=== PATIENT | female | born 1985 | race Caucasian/White ===

== ENCOUNTER 2016-06-06 09:12 | Emergency (ER) | payer OTHER ==
[2016-06-06 09:19] VITALS: O2SAT 94
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
[2016-06-06] MEDS ORDERED: IBUPROFEN 600 MG TAB PO ONE (10:11)
[2016-06-06 11:15] VITALS: BP 128/78; PULSE 70; RESP 16; TEMP 97.9
== END 2016-06-06 11:14 | disposition home or self-care (01) ==
DX: S39.012A Strain of muscle, fascia and tendon of lower back, initial encounter (principal); V89.2XXA Person injured in unspecified motor-vehicle accident, traffic, initial encounter

== ENCOUNTER → 2016-12-09 | Outpatient (CLI) | payer OTHER | LOC: BMCIMAGING 12:24 | PROVIDERS: ATTEND Family Medicine | DX: S99.912A Unspecified injury of left ankle, initial encounter (principal); W10.8XXA Fall (on) (from) other stairs and steps, initial encounter; Y99.0 Civilian activity done for income or pay ==

== ENCOUNTER → 2017-03-27 | Outpatient (CLI) | payer OTHER | LOC: FIMAGING 17:10 | PROVIDERS: ATTEND Physician Assistant | DX: M25.511 Pain in right shoulder (principal); M79.601 Pain in right arm; R07.81 Pleurodynia ==

== ENCOUNTER 2018-05-12 16:04 | Emergency (ER) | payer BC, OTHER ==
--- NOTE | 2018-05-12 17:13 | EDPHY ---
H & P Stated Complaint: 2 days RLQ pain, miscarriage 2 weeks ago. Time Seen by Provider: 05/12/18 16:44 HPI/ROS: CHIEF COMPLAINT: Right lower quadrant pain HISTORY OF PRESENT ILLNESS: 33-year-old female presents with right lower quadrant pain. Onset of sharp and stabbing right lower quadrant pain 5 hr ago. The pain is moderate and radiates to the groin. Associated with a 2 day history of constipation. No fever, nausea, vomiting or diarrhea. 2 weeks ago she had a heavy period and thought that she may have had a miscarriage. No current vaginal bleeding and no urinary symptoms. REVIEW OF SYSTEMS: complete 10 point ROS reviewed and is negative except for the noted elements in the HPI - Personal History Current Tetanus Diphtheria and Acellular Pertussis (TDAP): Yes Tetanus Vaccine Date: < 10 years - Medical/Surgical History Hx Asthma: No Hx Chronic Respiratory Disease: No Hx Diabetes: No Hx Cardiac Disease: No Hx Renal Disease: No Hx Cirrhosis: No Hx Alcoholism: No Hx HIV/AIDS: No Hx Splenectomy or Spleen Trauma: No Other PMH: hx PCOS, kidney stones - Social History Smoking Status: Never smoked Alcohol Use: Sober Drug Use: None - Physical Exam Exam: General Appearance: Alert, pleasant Eyes: Pupils equal and round, no conjunctival pallor ENT, Mouth: Mucous membranes moist Neck: Normal inspection Respiratory: Lungs are clear to auscultation Cardiovascular: Regular rate and rhythm Gastrointestinal: Abdomen is soft, right lower quadrant tenderness, no peritoneal signs Neurological: A&O, nonfocal, normal gait Skin: Warm and dry, no rash Extremities: Normal inspection Psychiatric: Mood and affect normal Constitutional: Initial Vital Signs Temperature (C) 36.3 C 05/12/18 16:27 Heart Rate 67 05/12/18 16:27 Respiratory Rate 16 05/12/18 16:27 Blood Pressure 138/87 H 05/12/18 16:27 O2 Sat (%) 99 05/12/18 16:27 O2 Delivery Mode Room Air Allergies/Adverse Reactions: No Known Allergies Allergy (Unverified 04/26/15 09:45) Home Medications: Medication Instructions Recorded Citalopram 05/12/18 Medical Decision Making - Diagnostics Imaging Results: Imaging Impressions Pelvic/Renal Ultrasound 05/12/18 16:53 Impression: There is a right adnexal solid mass with some intrinsic vascularity , of uncertain significance measuring 3 cm in diameter, not seen on previous imaging studies in 2016. The adjacent right ovary appears normal, with no evidence of torsion. The left ovary is also normal. LIMITED ABDOMINAL (APPENDICEAL) ULTRASOUND Technique: The right lower quadrant was evaluated with a high-resolution linear transducer, utilizing graded compression and color Doppler. Findings: The cecum is identified, and is air-filled, and the patient has some localized point tenderness in this location. There is trace pericecal free fluid also observed (images 6 and 13). However, the appendix is not identified. There is no rebound, inflamed mesenteric fat, or right lower quadrant mesenteric adenitis. Impression: Nondiagnostic assessment of the appendix. If there is further clinical concern regarding the patient's right lower quadrant pain, contrast-enhanced CT imaging could be considered. Abdomen Ultrasound 05/12/18 17:02 Impression: There is a right adnexal solid mass with some intrinsic vascularity , of uncertain significance measuring 3 cm in diameter, not seen on previous imaging studies in 2016. The adjacent right ovary appears normal, with no evidence of torsion. The left ovary is also normal. LIMITED ABDOMINAL (APPENDICEAL) ULTRASOUND Technique: The right lower quadrant was evaluated with a high-resolution linear transducer, utilizing graded compression and color Doppler. Findings: The cecum is identified, and is air-filled, and the patient has some localized point tenderness in this location. There is trace pericecal free fluid also observed (images 6 and 13). However, the appendix is not identified. There is no rebound, inflamed mesenteric fat, or right lower quadrant mesenteric adenitis. Impression: Nondiagnostic assessment of the appendix. If there is further clinical concern regarding the patient's right lower quadrant pain, contrast-enhanced CT imaging could be considered. Abdomen CT 05/12/18 18:51 Impression: 1. Punctate calcification in the expected location of the distal right ureter, which could be related to ureteral stone or artifact, without obstructive uropathy. 2. No discrete right adnexal mass identified. CT appearance of the right pelvis is grossly stable since 2016, allowing for variation between unenhanced- and contrast-enhanced technique. Consider follow-up ultrasound in 6 weeks. 3. Additional findings as above. Findings discussed with Feli Dee M.D., on May 12, 2018 at 1936. E:amm ED Course/Re-evaluation: This patient presents with sharp and stabbing right lower quadrant pain. Pelvic ultrasound obtained and reveals no evidence of ovarian cyst. The appendix is not clearly visualized. Discussed with the patient, continues to have persistent right lower quadrant sharp and stabbing pain. Toradol [address] scan of the abdomen pelvis obtained and reveals a possible tiny right distal ureteral calculus. This would certainly explain the patient's symptoms and is most likely, given the patient's history of kidney stones. Results discussed with the patient, including the need to follow up with OBGYN for pelvic ultrasound in 6 weeks. The patient will take ibuprofen every 6 hr for pain control. A prepack of hydrocodone was given for severe pain. Differential Diagnosis: Differential diagnosis includes though it is not limited to appendicitis, cholecystitis, diverticulitis, pyelonephritis, bowel perforation, small bowel obstruction. - Data Points Laboratory Results: Laboratory Results 05/12/18 16:47 05/12/18 16:47 05/12/18 05/12/18 05/12/18 17:45 16:47 16:47 WBC RBC Hgb Hct MCV MCH MCHC RDW Plt Count MPV Neut % (Auto) Lymph % (Auto) Kimball % (Auto) Eos % (Auto) Baso % (Auto) Nucleat RBC Rel Count Absolute Neuts (auto) Absolute Lymphs (auto) Absolute Monos (auto) Absolute Eos (auto) Absolute Basos (auto) Absolute Nucleated RBC Immature Gran % Immature Gran # Sodium 138 mEq/L mEq/L (135-145) Potassium 4.1 mEq/L mEq/L (3.5-5.2) Chloride 103 mEq/L mEq/L (97-110) Carbon Dioxide 27 mEq/l mEq/l (22-31) Anion Gap 8 mEq/L mEq/L (6-14) BUN 13 mg/dL mg/dL (7-23) Creatinine 0.8 mg/dL mg/dL (0.6-1.0) Estimated GFR > 60 Glucose 87 mg/dL mg/dL (70-100) Calcium 10.1 mg/dL mg/dL (8.5-10.4) Beta HCG, Qual NEGATIVE Urine Color YELLOW Urine Appearance CLEAR Urine pH 6.0 (5.0-7.5) Ur Specific [place] 1.021 (1.002-1.030) Urine Protein NEGATIVE (NEGATIVE) Urine Ketones TRACE H (NEGATIVE) Urine Blood NEGATIVE (NEGATIVE) Urine Nitrate NEGATIVE (NEGATIVE) Urine Bilirubin NEGATIVE (NEGATIVE) Urine Urobilinogen NEGATIVE EU EU (0.2-1.0) Ur Leukocyte Esterase NEGATIVE (NEGATIVE) Urine Glucose NEGATIVE (NEGATIVE) 05/12/18 16:47 WBC 8.62 10^3/uL 10^3/uL (3.80-9.50) RBC 4.84 10^6/uL 10^6/uL (4.18-5.33) Hgb 15.1 g/dL g/dL (12.6-16.3) Hct 44.7 % % (38.0-47.0) MCV 92.4 fL fL (81.5-99.8) MCH 31.2 pg pg (27.9-34.1) MCHC 33.8 g/dL g/dL (32.4-36.7) RDW 13.2 % % (11.5-15.2) Plt Count 229 10^3/uL 10^3/uL (150-400) MPV 11.5 fL fL (8.7-11.7) Neut % (Auto) 50.3 % % (39.3-74.2) Lymph % (Auto) 38.7 % % (15.0-45.0) Kimball % (Auto) 9.2 % % (4.5-13.0) Eos % (Auto) 0.8 % % (0.6-7.6) Baso % (Auto) 0.7 % % (0.3-1.7) Nucleat RBC Rel Count 0.0 % % (0.0-0.2) Absolute Neuts (auto) 4.33 10^3/uL 10^3/uL (1.70-6.50) Absolute Lymphs (auto) 3.34 10^3/uL H 10^3/uL (1.00-3.00) Absolute Monos (auto) 0.79 10^3/uL 10^3/uL (0.30-0.80) Absolute Eos (auto) 0.07 10^3/uL 10^3/uL (0.03-0.40) Absolute Basos (auto) 0.06 10^3/uL 10^3/uL (0.02-0.10) Absolute Nucleated RBC 0.00 10^3/uL 10^3/uL (0-0.01) Immature Gran % 0.3 % % (0.0-1.1) Immature Gran # 0.03 10^3/uL 10^3/uL (0.00-0.10) Sodium Potassium Chloride Carbon Dioxide Anion Gap BUN Creatinine Estimated GFR Glucose Calcium Beta HCG, Qual Urine Color Urine Appearance Urine pH Ur Specific Hern[place] Urine Protein Urine Ketones Urine Blood Urine Nitrate Urine Bilirubin Urine Urobilinogen Ur Leukocyte Esterase Urine Glucose Medications Given: Discontinued Medications Hydrocodone Bitart/Acetaminophen ([place] 5/325mg Prepack#6) 1 btl TAKEHOME EDNOW ONE Stop: 05/12/18 20:11 Last Admin: 05/12/18 20:21 Dose: 1 btl Ketorolac Tromethamine (Toradol) 30 mg IVP EDNOW ONE Stop: 05/12/18 18:52 Last Admin: 05/12/18 19:20 Dose: 30 mg Magnesium Citrate (Magnesium Citrate) 300 ml PO EDNOW ONE Stop: 05/12/18 20:20 Last Admin: 05/12/18 20:20 Dose: 300 ml Point of Care Test Results: Urine Collection Date 05/12/18 Collection Time 17:54 HCG Results Negative Departure - Departure Disposition: Home, Routine, Self-Care Clinical Impression: RLQ abdominal pain, Renal colic on right side Condition: Good Instructions: Hydrocodone/Acetaminophen (By mouth), Acute Abdominal Pain (ED), Ureteral Stones (ED) Additional Instructions: You may have a tiny kidney stone on the right side. If so, this is the cause of your pain and the pain will resolve once you pass the kidney stone. You do not have appendicitis or an ovarian cyst. Ibuprofen 600 mg 3 times daily while the pain persists. Take hydrocodone 1 tablet every 4 hr as needed for severe pain. The radiologist suggests a repeat ultrasound in 6 weeks. Follow-up with locate technician to schedule. Referrals: Mauricio Sevilla MD [Primary Care Provider] - As per Instructions Kassy Baer MD [Medical Doctor] - As per Instructions
[2018-05-12 17:21] LABS: PLATELET COUNT 229 10^3/uL (150-400)
[2018-05-12] MEDS ORDERED: KETOROLAC 30 MG/1 ML SDV IVP ONE (18:51)
[2018-05-12] MEDS ORDERED: IOPAMIDOL (ISOVUE 370) 100 ML BTL IV ONE (18:59)
[2018-05-12 19:28] VITALS: BP 122/78
[2018-05-12] MEDS ORDERED: HYDROCOD/APAP 5/325 PREPACK#6 BTL TAKEHOME ONE (20:10)
[2018-05-12] MEDS ORDERED: MAGNESIUM CITRATE 300 ML BOTTLE ONE (20:18)
[2018-05-12] MEDS ORDERED: MAGNESIUM CITRATE 300 ML BOTTLE PO ONE (20:19)
== END 2018-05-12 20:26 | disposition home or self-care (01) ==
DX: R10.31 Right lower quadrant pain (principal); N23 Unspecified renal colic
CPT/HCPCS: 96374; J1885; Q9967

== ENCOUNTER 2018-08-15 14:55 | Emergency (ER) | payer OTHER ==
[2018-08-15] MEDS ORDERED: NS 1,000 ML IV ONE (15:21)
--- NOTE | 2018-08-15 15:28 | EDPHY ---
General - History Smoking Status: Never smoked Time Seen by Provider: 08/15/18 15:01 Narrative: CLINICAL IMPRESSION: Abdominal cramping, diarrhea ASSESSMENT/PLAN: 33-year-old female 7 weeks by last menstrual cycle with positive urine test at home and at primary care doctor's office, presents to the emergency department with complaints of abdominal cramping and diarrhea after eating fast food last night. Patient reports unchanged nausea that she has had since becoming , no vomiting. She reports no localized abdominal pain and on exam has no focal peritoneal findings or suggestion of acute surgical abdomen or ectopic . She has not had any vaginal bleeding or discharge. She reports no dysuria urgency frequency or flank pain. No fever or chills. Labs show leukocytosis of 17 which may be a combination of and viral gastroenteritis. Electrolytes stable, normal renal function. She received IV fluids and promethazine with significant improvement in abdominal cramping. She was able to tolerate p. O.. She will be discharged home with a prescription for promethazine to use if needed, encouraged B vitamins and doxylamine if needed for nausea, please contact OBGYN for an appointment tomorrow. Low threshold for return to ED sooner for worsening symptoms as outlined in person and discharge papers. DIFFERENTIAL DX: [ Abdominal pain includes but not limited to viral gastroenteritis, colitis, urinary tract infection, pyelonephritis, infection, ectopic , salpingitis, TOA, ovarian torsion, ovarian cyst, acute appendicitis, acute diverticulitis ED PROCEDURES: See lab and/or imaging results below ED COURSE: Patient seen by myself at 3:15 a.m.. Declining IV analgesics and antiemetics at this time. Will start with IV fluids. Stool studies sent given 4:05 p.m.: Patient reassessed, still having abdominal cramping. Has gone to the restroom once. Would now like to try something for cramping. 4:45 p.m.: Patient reassessed after receiving IV Phenergan. Sleeping comfortably, reports she is feeling much better. Still having intermittent cramping but nothing nearly as bad. Labs reviewed. Leukocytosis of 17 which I suspect may be a combination of and gastroenteritis. Abdomen is soft without focal peritoneal findings or suggestion of ectopic or acute surgical abdomen. Electrolytes stable, renal function without abnormality. Patient will try p.o. Challenge. Plan to discharge home with promethazine and contact merchandise buyer or primary care for follow-up tomorrow. CHIEF COMPLAINT: Abdominal pain, nausea and diarrhea HPI: 33-year-old female presents 7 weeks with complaints of generalized intermittent waxing and waning abdominal cramping associated with frequent diarrhea since 9:00 a.m. This morning. She has been nauseous ever since becoming and states this is unchanged. No associated vomiting. No fever or chills. She had a positive home test and confirmatory urine study at her primary care doctor's office. She has not yet seen her OBGYN but has an appointment with the [facility] in mid August. No reports of pelvic pain, vaginal bleeding or spotting. She reports a miscarriage with her 1st around 6 weeks. She had fast food yesterday and thinks her symptoms may be due to this. Her had the same food and is not ill. No other ill contacts. No urinary symptoms or flank pain. No travel outside the [place] Or recent antibiotics. PAST MEDICAL HISTORY: Currently See triage summary and nurse notes for addition applicable history Pertinent Past Surgical History: None reported Family History: None reported Social History: REVIEW OF SYSTEMS: A full 10 point review of systems was negative except for those mentioned in HPI. PHYSICAL EXAM: General Appearance: Alert, oriented, appropriate, cooperative, tearful, appears uncomfortable, non-toxic appearing, VSS, no hypoxia. Respiratory: There are no retractions, lungs are clear to auscultation. Cardiac: Regular rate and rhythm, no murmurs or gallops. Gastrointestinal: Abdomen is soft, nontender, specifically no focal peritoneal findings to right or left lower quadrants and no reported vaginal bleeding, bowel sounds normal, no masses/hernia, no rigidity, guarding Skin: Warm, dry, no rashes, no nodules on palpation. MEDICAL DECISION MAKING: Patient was seen independently. Secondary supervising physician at time of evaluation was: Dr. Fraga . Diagnosis: Nausea, abdominal cramping, diarrhea . New, requires workup Summary: See Assessment and Plan for summary of ED visit Clinical lab tests: ordered / reviewed. Patient Progress: Improved, stable for discharge. (Royal Shepherd) The patient was evaluated and managed by the physician showroom sales assistant. I have reviewed this chart and I agree with the findings and plan of care as documented , as indicated by my signature. I am the secondary supervising physician. ( Yvonne Fraga) - Objective Vital Signs: Initial Vital Signs Temperature (C) 36.7 C 08/15/18 14:58 Heart Rate 71 08/15/18 14:58 Respiratory Rate 18 08/15/18 14:58 Blood Pressure 128/82 H 08/15/18 14:58 O2 Sat (%) 100 08/15/18 14:58 O2 Delivery Mode Room Air Allergies/Adverse Reactions: No Known Allergies Allergy (Verified 08/15/18 14:56) Home Medications: Medication Instructions Recorded 08/15/18 Promethazine HCl [Phenergan] 25 mg PO Q4 PRN #10 tab 08/15/18 Zoloft 100mg (*) 08/15/18 Laboratory Results: Laboratory Results 08/15/18 15:10 08/15/18 15:10 Microbiology Results: MICROBIOLOGY 08/15/18 15:23 Stool Fecal Leukocyte Stain - Final Medications Given: Discontinued Medications Sodium Chloride (Ns) 1,000 mls @ 0 mls/hr IV EDNOW ONE; Wide Open PRN Reason: Protocol Stop: 08/15/18 15:22 Last Admin: 08/15/18 15:22 Dose: 1,000 mls Promethazine HCl (Phenergan) 12.5 mg IVP ONCE ONE Stop: 08/15/18 16:09 Last Admin: 08/15/18 16:13 Dose: 12.5 mg Departure - Departure Disposition: Home, Routine, Self-Care Clinical Impression: Abdominal cramping, Diarrhea Condition: Good Instructions: Gastroenteritis (ED), Acute Diarrhea (ED) Additional Instructions: DISCHARGE INSTRUCTIONS FROM YOUR DOCTOR Thank you for visiting our emergency department today. You were treated by a physician showroom sales assistant today and your case was reviewed with our ED Attending physician. Please keep in mind that discharge from the emergency department does not mean that there is nothing wrong - it simply means that we have not identified an emergency condition that requires further evaluation or treatment in the hospital. You should always plan to follow up with primary care for re- evaluation of your condition in the next 2-3 days. If you have been referred to a specialist, please call as soon as possible (today or tomorrow) to schedule your follow up appointment at the appropriate time. PLEASE CONTACT HER PRIMARY OBGYN OR PRIMARY CARE DOCTOR FOR AN APPOINTMENT TOMORROW. STOOL STUDIES ARE PENDING. YOU HAD A ELEVATED WHITE BLOOD COUNT TODAY WHICH MAY BE SECONDARY TO AND GASTROENTERITIS. ELECTROLYTES AND RENAL FUNCTION WERE NORMAL. URINE STUDIES WERE NORMAL. YOU RECEIVED IV FLUIDS AND IV PROMETHAZINE. A PRESCRIPTION WAS GIVEN FOR PROMETHAZINE TO USE AT HOME IF NEEDED. YOU MAY ALSO WANT TO CONSIDER TRYING B6 AND/OR UNISOM SLEEP TABLETS WHICH HAVE BEEN PROVEN TO HELP WITH NAUSEA IN AND ARE SAFE. PLEASE RETURN TO THE EMERGENCY DEPARTMENT FOR PERSISTENT OR WORSENING ABDOMINAL CRAMPING, LOCALIZED ABDOMINAL PAIN, DEVELOPMENT OF FEVER OR CHILLS, VAGINAL BLEEDING, VOMITING, PERSISTENT DIARRHEA, BLOODY STOOLS, OR ANY OTHER CONCERNS. People present with illnesses and injuries in different ways, and it is always possible that we have missed something. You may always return for re-evaluation if symptoms worsen or if they are not improving or if you develop new/different symptoms. Again, thank you for choosing our emergency department. We hope that you feel better. Referrals: Batool Marley MD [Primary Care Provider] - 1 day without fail Prescriptions: Promethazine HCl [Phenergan] 25 mg PO Q4 PRN #10 tab PRN Reason: Nausea/Vomiting, Can'T Take Po
[2018-08-15] MEDS ORDERED: PROMETHAZINE HCL 25 MG/ML INJ IVP ONE (16:08)
[2018-08-15 16:15] LABS: PLATELET COUNT 270 10^3/uL (150-400)
[2018-08-15 17:25] VITALS: BP 117/70
== END 2018-08-15 17:25 | disposition home or self-care (01) ==
DX: O26.891 Other specified pregnancy related conditions, first trimester (principal); O99.611 Diseases of the digestive system complicating pregnancy, first trimester; O99.281 Endocrine, nutritional and metabolic diseases complicating pregnancy, first trimester; Z3A.01 Less than 8 weeks gestation of pregnancy
CPT/HCPCS: 96374; J2550